=== PATIENT | male | born 1950 | race Caucasian/White ===

== ENCOUNTER 2019-05-23 12:15 | Emergency (ER) | payer OTHER ==
[~2019-05-23] VITALS: Wt 69.6 kg
[2019-05-23 12:21] VITALS: BP 134/68; PULSE 60; RESP 18
[2019-05-23] MEDS ORDERED: ELIM TOP (13:34)
--- NOTE | 2019-05-23 14:34 | ERD ---
ER Documentation Chief Complaint Chief Complaint gen rash: small red itchy x8d. HPI History of Present Illness: 68-year-old male who denies a past medical history being accompanied today by his and agreed son coming in today due to generalized rash. Patient reports rash started approximately 8 days ago. is a patient also with similar symptoms in which her rash started before the patient. Patient reports rash is more itchy at night. At home pharmacological/nonpharmacological treatment for symptoms: Denies Denies social concerns; Denies recent foreign travel ROS All systems reviewed and are negative except as per history of present illness. Medications Home Meds Active Scripts Permethrin* (Elimite*) 5% Cr, 1 APPLIC TOP ONCE, #1 TUB Prov:JONO BURNS V [employer] 05/23/19 PMhx/Soc Medical and Surgical Hx: pt denies Medical Hx, pt denies Surgical Hx Hx Alcohol Use: No Hx Substance Use: No Hx Tobacco Use: No Smoking Status: Never smoker FmHx Family History: No diabetes, No coronary disease Physical Exam Vitals Vital Signs Date Temp Pulse Resp B/P (MAP) Pulse Ox O2 O2 Flow FiO2 Time Delivery Rate 05/23/19 98.2 60 18 134/68 95 12:21 (90) Physical Exam Const: No acute distress, afebrile Head: Atraumatic Eyes: Normal Conjunctiva ENT: Normal External Ears, Nose and Mouth. Neck: Full range of motion. No meningismus. Resp: Clear to auscultation bilaterally Cardio: Regular rate and rhythm, no murmurs Abd: Soft, non tender, non distended. No guarding, no masses, no rigidity Skin: No petechiae; pinpoint red macular papular areas noted to stomach, wrists, shins, ankles Back: No midline or flank tenderness Ext: No cyanosis, or edema Neur: Awake and alert x3, speaking in clear sentences, no focal deficits or facial asymmetry Psych: Normal Mood and Affect Procedures/MDM ED COURSE: ED course includes a thorough examination and history. The patient was stable throughout ED course. I kept the patient and/or family informed of laboratory and diagnostic imaging results throughout the ED course. MEDICAL DECISION MAKING: Low suspicion for life-threatening medical emergency. Low suspicion for infectious process. Otherwise healthy patient presenting with constellation of symptoms likely representing rash possibly secondary to bedbugs's/scabies as characterized by history, physical exam findings. Patient reassessment @ 1350: Patient hemodynamically stable. No respiratory distress, otherwise relatively well appearing and nontoxic. Disposition given. Patient educated on diagnoses, prescriptions, follow-up care, return precautions. Strict return precautions given for worsening condition; questions answered discharge. Patient verbalizes understanding of discharge instructions. PRESCRIPTIONS FOR HOME: Permethrin DISPOSITION: DISCHARGE At this time, patient is stable for discharge and outpatient management. I have instructed the patient to follow-up with his/her primary care physician in 1-2 days. I have discussed with the patient the possibility of needing to see a specialist for further workup and imaging studies if symptoms persist. I have instructed the patient to promptly return to the ER for any new or worsening symptoms including increased pain, fever, nausea, vomiting, weakness or LOC. The patient and/or family expressed understanding of and agreement with this plan. All questions were answered. Home care instructions were provided. DISCLAIMER: Inadvertent spelling and grammatical errors are likely due to EHR/dictation software use and do not reflect on the overall quality of patient care. Also, please note that the electronic time recorded on this note does not necessarily reflect the actual time of the patient encounter. Departure Diagnosis: Primary Impression: Rash Condition: Stable Patient Instructions: Scabies, Bedbug Bites [facility] Usted se casiano hecho un examen mdico de control que le indica que no est en keshawn condicin que requiera tratamiento urgente en el Departamento de Emergencia. Un estudio ms profundo y el tratamiento de rojas condicin pueden esperar sin ningn riesgo hasta que usted sea atendida/o en el consultorio de rojas mdico o keshawn clnica. Es responsabilidad suya arreglar keshawn krystal para el seguimiento del kwesi. MANEJO DE CONDICIONES NO URGENTES EN EL FUTURO 1) Si usted tiene un mdico de atencin primaria: Usted debera llamar a rojas mdico de atencin primaria antes de venir al departamento de emergencia. Despus de las horas de consultorio, rojas doctor o rojas asociado/a est disponible por telfono. El mdico o enfermero de nessa en el servicio telefnico puede asesorarle por hazel medio para atender el problema, o kwesi contrario se puede programar keshawn rkystal. 2) Si usted no tiene un mdico de atencin primaria: Llame al mdico o clnica de referencia que aparece abajo ralph las horas de consultorio para hacer keshawn krystal para que le vean. CLINICAS: [facility] [phone] [facility] [phone] [facility] [place] [phone] [place] [address] [phone] [place] [id number] [phone] [facility]. [phone] [address] [facility]. [facility] () Usted se casiano hecho un examen mdico de control que le indica que no est en keshawn condicin que requiera tratamiento urgente en el Departamento de Emergencia. Un estudio ms profundo y el tratamiento de rojas condicin pueden esperar sin ningn riesgo hasta que usted sea atendida/o en el consultorio de rojas mdico o keshawn clnica. Es responsabilidad suya arreglar keshawn krystal para el seguimiento del kwesi. MANEJO DE CONDICIONES NO URGENTES EN EL FUTURO 1) Si usted tiene un mdico de atencin primaria: Usted debera llamar a rojas mdico de atencin primaria antes de venir al departamento de emergencia. Despus de las horas de consultorio, rojas doctor o rojas asociado/a est disponible por telfono. El mdico o enfermero de nessa en el servicio telefnico puede asesorarle por hazel medio para atender el problema, o kwesi contrario se puede programar keshawn krystal. 2) Si usted no tiene un mdico de atencin primaria: Llame al mdico o condado institucions de referencia que aparece abajo ralph las horas de consultorio para hacer keshawn krystal para que le vean. SI USTED NO PUEDE PAGAR PARA YESENIA UN MEDICO puede ir a: [facility] [address] [place] [address] [facility] [address] [place] [address] [facility] [address] [place] [address] PARA [facility] [address] [place], [place] [id number] Additional Instructions: Muchas lissa por permitirnos participar en rojas cuidado. Rojas kelly y seguridad es nuestra principal prioridad en [facility]. Es importante leer todas las instrucciones de roxanne y la educacin que se proporcionan en rojas paquete de roxanne. Llame a rojas mdico de atencin primaria MAANA para keshawn krystal ralph los prximos 2 a 4 gaspar y lleve toda la informacin y los medicamentos recetados. Llene las recetas y siga exactamente las instrucciones de la etiqueta. Si los sntomas empeoran y rojas proveedor no est disponible, regrese inmediatamente al Departamento de Emergencias. ----- Thank you very much for allowing us to participate in your care. Your health and safety is our top priority at [facility]. It is important to read all discharge instructions and education provided in your discharge packet. Call your primary care doctor TOMORROW for an appointment during the next 2-4 days and bring all the information and medications prescribed. Have prescriptions filled and follow precisely the directions on the label. If the symptoms get worse and your provider is unavailable, return to the Emergency Department immediately. JONO BURNS NP May 23, 2019 14:34
== END 2019-05-23 14:02 | disposition home or self-care (01) ==
LOC: FTE 12:15
DX: R21 Rash and other nonspecific skin eruption (principal)
CPT/HCPCS: 99282